=== PATIENT | female | born 1985 | race Caucasian/White ===

== ENCOUNTER 2018-04-10 01:32 | Inpatient (IN) ==
[2018-04-09 17:11] LABS: Basophils % 0.1 %; Eosinophils % 0.2 %; Hematocrit 29.8 % (35.3-44.9); Hemoglobin 10.7 g/dL (11.5-15.4); Immature Granulocytes % 0.8 % (0-4); Lymphocytes # 1.4 K/mcL (0.6-4.6); Lymphocytes % 9.2 %; Mean Corpuscular HGB Conc 35.9 g/dL (31.6-35.5); Mean Corpuscular Hemoglobin 33.1 pg (28.0-33.3); Mean Corpuscular Volume 92.3 fL (83.0-100.0); Mean Platelet Volume 10.7 fL (9.4-12.4); Monocytes # 0.8 K/mcL (0.0-1.3); Monocytes % 4.8 %; Neutrophils # 13.3 K/mcL (1.6-8.9); Platelet Count 204 K/mcL (140-400); Red Blood Count 3.23 M/mcL (3.82-4.97); Red Cell Distribution Width 14.3 % (11.5-14.5); Segmented Neutrophils % 84.9 %
[2018-04-09 17:29] LABS: Amphetamine Screen,Urine Negative ng/mL (Cutoff=1000); Barbiturate Screen,Urine Negative ng/mL (Cutoff=200); Benzodiazepines Screen,Urine Negative ng/mL (Cutoff=200); Cannabinoid Screen,Urine Negative ng/mL (Cutoff = 50); Cocaine Screen,Urine Negative ng/mL (Cutoff= 300); Opiate Screen,Urine Negative ng/mL (Cutoff=300); Phencyclidine Screen,Urine Negative ng/mL (Cutoff=25)
[2018-04-09 17:31] LABS: Alanine Aminotransferase 15 Units/L (7-52); Aspartate Amino Transferase 24 Units/L (13-39); BUN/Creatinine Ratio 11 (6-26); Blood Urea Nitrogen 5 mg/dL (6-20); Lactate Dehydrogenase 177 Units/L (140-271); Uric Acid 5.2 mg/dL (2.3-7.6); eGFR For Non-African Americans > 60 (> 60)
[2018-04-09 17:32] LABS: Creatinine,Urine 52 mg/dL; Protein/Creatinine Ratio,Urine 0.25 mg/mg (0.00-0.20)
--- NOTE | 2018-04-09 18:36 | OB/GYN History & Physical ---
Date of Encounter: 04/09/18 Time of Encounter: 18:34 Assessment and Plan (1) Gestational hypertension Current visit: Yes Status: Acute Pt sent over due to elevated blood pressures and proteinuria in office PIH labs negative Given 20mg Labetalol IV Push x 1 Admit to labor and delivery for induction of labor due to gestational hypertension AROM and IUPC, Scalp Electrode applied by Dr. Collins Epidural and Nubain as needed for pain control Pitocin per policy Anticipate Vaginal Delivery Qualifiers: Trimester: third trimester Qualified Code(s): O13.3 - Gestational [ -induced] hypertension without significant proteinuria, third trimester (2) 37 weeks gestation of Current visit: Yes Status: Acute (3) LGA (large for gestational age) fetus affecting mother, antepartum Current visit: Yes Status: Acute Qualifiers: Fetus number: single or unspecified fetus Qualified Code(s): O36.60X0 - Maternal care for excessive growth, unspecified trimester, not applicable or unspecified (4) Polyhydramnios affecting in third trimester Current visit: Yes Status: Acute (5) Chiari malformation type I Current visit: Yes Status: Chronic History of Present Illness Chief complaint: High Blood Pressure HPI: Ms. Ricks is a 32 year old female who presents at 37 weeks 3 days gestational age from the office with elevated blood pressures and proteinuria. Pt denied headache, blurry vision, dizziness, lightheadedness, SOB, chest pain, nausea, vomiting. She endorses good movement, and denies vaginal bleeding or leakage of clear fluid. History of pre-eclampsia and induction of labor at 38 weeks in previous . Has been following with Dr. Malik throughout thus far. Labs: Blood Type: O positive Ab Screen: Negative GBS: Negative Hep B Surf Ag: Nonreactive HIV Ab: Nonreactive Treponema Ab: Negative G/C: Negative Varicella: Immune Rubella: Non-immune Past Med Surg Social Fam HX - Past Medical History Attestation: Yes The following information was validated with the patient. Source: patient Medical history: no medical history, asthma Psychiatric history: no psych history - Past Surgical History Additional surgical history: C1 Laminectomy and decompression 2013 - Social History Smoking Status: Former smoker Smokeless Tobacco Status: No Alcohol use: none Drug use: none - Family History Mother Name: Brittany Mccall Age: 62 Family Member Ethnicity: Non- Living Status: Still Living Hx Family Cardiac Disorders: Yes (hypertension, 3 stents) Hx Family Respiratory Disorders: No Hx Family Cancer: No Hx Family GI Disorders: No Hx Family Genitourinary Disorders: Yes (bladder incontinence) Hx Family Endocrine Disorder: No Hx Family Musculoskeletal Disorders: No Hx Family Neuromuscular Disorders: No Hx Family Neurologic Disorders: No Hx Family HEENT Disorders: No Hx Family Autoimmune Disorders: No Hx Family Reproductive Disorders: Yes Hx Family Psychosocial Disorders: Yes (depression) Hx Family Medical Disorders: No Obstetrical History - Pregnancies : 2 Para: 1 Term: 1 : 0 Ab's: 0 Livin Medications and Allergies Amitriptyline [Elavil] 25 mg PO HS 04/09/18 [History] Aspirin [Adult Aspirin Regimen] 81 mg PO DAILY 04/09/18 [History] Docusate Sodium [Stool Softener] 150 mg PO DAILY 04/09/18 [History] Ferrous Sulfate 324 tab PO DAILY 04/09/18 [History] Folic Acid tab PO DAILY 04/09/18 [History] Vit #49/Iron Fum/FA [Mini Tablet] 1 each PO DAILY 04/09/18 [ History] 3 Allergy/AdvReac Type Severity Reaction Status Date / Time No Known Allergies Allergy Verified 04/09/18 18:14 Review of System OB All systems PM: reviewed and no additional remarkable complaints except as stated Exam - Vital Signs Vital signs: Elevated BPs 160-170s/ 90s-100s; Vital signs otherwise reviewed and stable. - Constitutional Constitutional: well developed, well nourished, no acute distress, obese - HEENT HEENT: EOMI, Normocephaly, Mucus Membranes Moist - Neck Neck exam: full ROM, normal inspection - Lungs Respiratory exam: CTAB - Cardiovascular Cardiovascular exam: RRR, +S1, +S2 - Abdomen Abdomen: Present: bowel sounds normal, gravid, non tender - Extremities Extremities exam: full ROM, normal capillary refill, normal inspection, pedal edema, warm, radial pulses palpable and symmetrical Deep Tendon Reflex Grade: 2+ Normal - Cervix Dilation: 3 (Per Dr. Collins) Effacement: 80 Station: -2 - Comments Comments: Category I Tracing; HR: 160s Results Result Diagrams: 04/09/18 16:40 04/09/18 16:40 Abnormal lab results WBC 15.7 K/mcL (4.3-11.1) H 04/09/18 16:40 RBC 3.23 M/mcL (3.82-4.97) L 04/09/18 16:40 Hgb 10.7 g/dL (11.5-15.4) L 04/09/18 16:40 Hct 29.8 % (35.3-44.9) L 04/09/18 16:40 MCHC 35.9 g/dL (31.6-35.5) H 04/09/18 16:40 Neutrophils # 13.3 K/mcL (1.6-8.9) H 04/09/18 16:40 BUN 5 mg/dL (6-20) L 04/09/18 16:40 Creatinine 0.47 mg/dL (0.60-1.20) L 04/09/18 16:40 Protein/Creatinin Ratio 0.25 mg/mg (0.00-0.20) H 04/09/18 16:40 All other labs normal. - VTE Reasons for not Prescribing Prophylaxis: Medical contraindication - Attending Attestation I examined this patient and my medical decision-making was reviewed with the Resident Physician. I agree with the documented findings, disposition and treatment plan as described except to the extent set forth below. Nikolai Collins DO
--- NOTE | 2018-04-09 18:41 | Anesthesia Evaluation PreOp ---
Date of Encounter: 04/09/18 Time of Encounter: 18:39 - Past History Planned Operation: RODNEY Cardiac History: HTN (PIH) Pulmonary History: Denies Any Significant HX SAP PI DEVELOPER History: Other (Patient has hx of chiari malformation s/p decompressive surgery in 2013. Has since then had RODNEY without complications. See Anes. consult note. No changes to neurological status.) Other Medical History: Denies Any Significant HX Anesthesia History: No Prior Anesthetic Complications, Past Anesthesia : Yes Alcohol Use: none Drug use: none Medications and Allergies Amitriptyline [Elavil] 25 mg PO HS 04/09/18 [History] Aspirin [Adult Aspirin Regimen] 81 mg PO DAILY 04/09/18 [History] Docusate Sodium [Stool Softener] 150 mg PO DAILY 04/09/18 [History] Ferrous Sulfate 324 tab PO DAILY 04/09/18 [History] Folic Acid tab PO DAILY 04/09/18 [History] Vit #49/Iron Fum/FA [Mini Tablet] 1 each PO DAILY 04/09/18 [ History] 3 Allergy/AdvReac Type Severity Reaction Status Date / Time No Known Allergies Allergy Verified 04/09/18 18:14 - Meds/Allergy Pre-op Review Medications Reviewed: Yes Allergies Reviewed: Yes Beta Blockers on Current Med List: Yes (04/09 18:11) Anesthesia Results - Labs 04/09/18 16:40 04/09/18 16:40 Anesthesia Exam O2 Sat Height 1.68 m Weight 100.698 kg NPO (# of Hours): 6 Pain Scale: 5 Pain Scale Used: Numeric (1 - 10) - HEENT Pupil (Motor): Pupils equal Mallampati: II Teeth: Normal Oral Opening: Greater than 3 - SAP PI DEVELOPER LOC: Oriented SAP PI DEVELOPER Motor: Normal RUE, Normal LUE, Normal RLE, Normal LLE, Normal Face SAP PI DEVELOPER Sensory: Normal: RUE, LUE, RLE, LLE, Face - Cardiac Rhythm: Regular Murmur: None JVD: No Carotid Bruit: No - Pulmonary Breath Sounds: bilateral Clear Respiratory Effort: Symmetrical Anesthesia Assess/Plan ASA Score: 2 Modified [place] Scale for Level of Consciousness: Cooperative, oriented, and tranquil Anesthetic Plan: General (plan b), Regional (plan a) Autologous Blood: Yes Monitoring Plan: Standard Monitors Recovery Plan: PACU
--- NOTE | 2018-04-09 19:29 | OB Labor Progress Note ---
Date of Encounter: 04/09/18 Time of Encounter: 19:27 Labor Progress Note - Subjective Subjective: Patient is a 32-year-old 2 para 1 at 37-3/7 weeks who presented from the office secondary elevated blood pressures. On labor and delivery pressures are markedly elevated she did require IV labetalol PIH labs were normal. Because of persistent elevated was decided because of the gestational hypertension with proceed on with delivery. Patient has polyhydramnios is having difficulty monitoring the patient decided time of this go-ahead and artificially ruptured and internalized. - Cervix Cervix: 3/80/-2 AROM large amount clear fluid noted - Heart Tones Heart Tones: scalp monitor placed. Heart tones 140s reactive - [place]: IUPC placed irregular contractions noted - Plan Plan: We will get patient pressure stabilized 1 stable with labetalol we will augment with Pitocin plan is to anticipate a vaginal delivery
--- NOTE | 2018-04-10 01:10 | Anesthesia Procedures ---
Date of Encounter: 04/10/18 Time of Encounter: 01:08 Procedures: Anesthesia - Epidural/Spinal Patient ID/Chart reviewed: Yes Patient examined: Yes OB Eval: Gestational age: 37.4 OB Eval: : 2 OB Eval: Hx Para: 1 OB Eval: Dilated at (cm): 3 OB Eval: Contractions: Non-stressed pattern Consent Obtained: Yes Supplemental Oxygen: None/Room Air Site Prep: Aseptic Technique, Sterile prep and drape, Povidone-Iodine 1% Patient position: upright Local Anesthetic: Lidocaine 1% Amount of Local Anesthetic used: 3 Touhy Needle Gauge: 18 Touhy Needle Depth (cm): 7 Catheter Depth at Skin (cm): 20 Test Dose (1.5% Lido + Epi): Volume given (mls): 5 Test Dose Result: Negative Loading Dose: Other: 10mls of epidural pharm bag premix solution Loading Dose Administered: Thru Catheter Infusion Med: 0.125% Bupivacaine w/ 2 mcg/ml Fentanyl Infusion Rate (mls/hr): 16 ([id number]) Catheter Secured in Place: Tegaderm, Tape Interspace Used: L4-L5 Loss of Resistance (ARIANNE): Yes Blood: No CSF: No Paresthesia: No Procedure: pt tolerated procedure well. no complications. vss. fhr stable.
[~2018-04-10 01:32] MED LIST: *HR* Labetalol 20 MG/4 ML SYRINGE IVP ONE; *HR* Nalbuphine 10 MG/ML AMPUL IVP PRN; EPHEDrine 50 MG/ML VIAL IVP PRN; Epidural Premix (fent/bupiv) 110 ML EP SCH; Famotidine 20 MG TABLET PO SCH; Famotidine 20 MG/2 ML VIAL IVP PRN; Lidocaine -MPF 1% 5 ML AMPUL ONE; Metoclopramide 10 MG/2 ML VIAL IVP PRN; Naloxone 0.4 MG/ML INJ IVP PRN; Ondansetron 4 MG/2 ML VIAL IVP PRN; Oxytocin 20 units/ LR 1000 mL 20 UNIT/1,000 ML BAG IVC SCH; Ringers Solution, Lactated 1,000 ML IVC SCH; Ringers Solution, Lactated 500 ML IVC ONE
[2018-04-10] MEDS ORDERED: Acetaminophen 325 MG TABLET PO PRN (04:25)
[2018-04-10] MEDS ORDERED: Lanolin 7 G OINT...G. TP PRN (04:25)
[2018-04-10] MEDS ORDERED: Oxytocin 20 units/ LR 1000 mL 20 UNIT/1,000 ML BAG IVC SCH (04:25)
--- NOTE | 2018-04-10 04:28 | OB/GYN Procedure Note ---
Delivery - Delivery Date: 04/10/18 Provider: Shon Collins Intrapartum events: other(please specify) (hypertension) Delivery induction: AROM, oxytocin Delivery monitor: internal FHT, internal uterine Anesthesia: local, epidural Quantitated Blood Loss: 300 - (s) A Delivery Date: 04/10/18 Delivery Time: 03:37 Presentation: vertex Position: LOUIE Route of delivery: Gender: Female Viability: Viable Pounds: 9 Ounces: 1 Weight Gram: 4.11 kg at 1 minute: 8 at 5 mins: 9 Shoulder Dystocia: not encountered Specimens collected: cord blood Placenta: spontaneous Cord: 3 umbilical vessels - Repair Episiotomy: none Laceration Description: Perineal - 2nd Degree - Complications Delivery complications: none Delivery comments: Patient is a 33-year-old 2 para 1 at 37-3/7 weeks who presented from the office secondary to elevated blood pressures. Patient's blood pressure was elevated on admission and did require labetalol. Because we were changing her blood pressures and did have to give her by mouth labetalol was decided to go ahead and keep her and induce her secondary to gestational hypertension. Patient had a large for gestational age with polyhydramnios unable to monitor baby so she was artificially ruptured with a scalp lead large amount of clear fluid was noted and she was internalized patient was started on Pitocin patient did receive an epidural and progressed probably patient became complete patient pushed approximately 4-5 times delivering a viable female infant in left occiput anterior presentation at 0 337. There was no nuchal cord, no meconium, infant was suctioned on the abdomen. Apgars were 8 at 1 minute, 9 at 5, infant weight was 9 lbs. 1 oz. Placenta was then delivered spontaneously with three-vessel cord, tie puller is Dr. Collins, billing and accounting staff assistant Dr. Qureshi PGY 2 anesthesia epidural local, as noted blood loss 300 mL's. Patient had a second-degree perineal laceration repaired with 3-0 Monocryl in usual fashion cervix and vagina was visualized intact. Patient tolerated the delivery well she will be observed 2 hours before being taken floor. - Disposition Mom disposition: stable in LDR disposition: stable in LDR
[2018-04-10] MEDS: Ibuprofen 600 MG TABLET PO PRN ×2 (04:39→20:16)
[2018-04-10] MEDS: Prenatal Vit/FA 1 EACH TABLET PO SCH (08:46)
[2018-04-10] MEDS: Benzocaine/Menthol 56 GM AEROSOL SPRAY TP PRN (20:17)
[2018-04-11 04:38] LABS: Basophils % 0.2 %; Eosinophils # 0.2 K/mcL (0.0-0.6); Eosinophils % 1.3 %; Hematocrit 24.1 % (35.3-44.9); Immature Granulocytes % 1.7 % (0-4); Lymphocytes # 2.6 K/mcL (0.6-4.6); Lymphocytes % 19.1 %; Mean Corpuscular HGB Conc 34.4 g/dL (31.6-35.5); Mean Corpuscular Hemoglobin 31.9 pg (28.0-33.3); Mean Corpuscular Volume 92.7 fL (83.0-100.0); Mean Platelet Volume 10.8 fL (9.4-12.4); Monocytes # 1.1 K/mcL (0.0-1.3); Monocytes % 8.4 %; Neutrophils # 9.4 K/mcL (1.6-8.9); Platelet Count 169 K/mcL (140-400); Red Cell Distribution Width 14.6 % (11.5-14.5); Segmented Neutrophils % 69.3 %
[2018-04-11 04:55] LABS: Hemoglobin 8.3 g/dL (11.5-15.4)
[2018-04-11] MEDS: Prenatal Vit/FA 1 EACH TABLET PO SCH (08:59)
[2018-04-11] MEDS: Ibuprofen 600 MG TABLET PO PRN ×2 (09:02→21:39)
--- NOTE | 2018-04-11 09:14 | OB/GYN Progress Note ---
Date of Encounter: 04/11/18 Time of Encounter: 09:12 - Assessment and Plan (1) Vaginal delivery Current Visit: Yes Status: Acute Continue routine care Monitor blood pressure Anticipate discharge home tomorrow Subjective - Subjective Principal diagnosis: Vaginal Delivery Interval history: S/P Vaginal Delivery Day 1 Pain is well controlled Lochia is light and without clots All VSS except for BP which is borderline and controlled with labetalol; will continue to monitor for another 24 hours Tolerating regular diet, passing flatus Voiding without difficulty Discharge home tomorrow Patient reports: appetite normal, voiding normally, pain well controlled, ambulating normally [place]: in NICU, nursing well Objective - Latest Vital Signs Latest vital signs: Vital Signs Temp Pulse Resp BP Pulse Ox 04/11/18 04:10 98.1 F 91 14 141/87 98 04/10/18 21:30 88 14 137/89 04/10/18 20:10 98.2 F 95 14 163/99 98 04/10/18 17:28 97.3 F L 89 16 148/97 - Exam Lungs: bilateral: normal Chest: Normal S1, Normal S2 Extremities: Present: normal Abdomen: Present: normal appearance, soft. Absent: gravid Uterus: Present: normal, firm Uterus Position: At Umbilicus, Midline - Labs Labs: Laboratory Results - last 24 hr 04/11/18 04:01 WBC 13.5 H RBC 2.60 L Hgb 8.3 L D Hct 24.1 L MCV 92.7 MCH 31.9 MCHC 34.4 RDW 14.6 H Plt Count 169 MPV 10.8 Immature Gran % 1.7 Seg Neutrophils % 69.3 Lymphocytes % 19.1 Monocytes % 8.4 Eosinophils % 1.3 Basophils % 0.2 Neutrophils # 9.4 H Lymphocytes # 2.6 Monocytes # 1.1 Eosinophils # 0.2 Basophils # 0.0
[2018-04-11] MEDS: Benzocaine/Menthol 56 GM AEROSOL SPRAY TP PRN (21:40)
[2018-04-12 05:08] VITALS: BP 142/90
[2018-04-12] MEDS: Ibuprofen 600 MG TABLET PO PRN (08:15)
[2018-04-12] MEDS: Prenatal Vit/FA 1 EACH TABLET PO SCH (08:15)
--- NOTE | 2018-04-12 08:59 | Discharge Summary ---
Date of Encounter: 04/12/18 Time of Encounter: 08:55 - Discharge Diagnosis (1) Vaginal delivery Priority: Primary Status: Acute Comments: S/P Vaginal Delivery Day 2 Pain is well controlled Lochia is light and without clots VSS Tolerating regular diet, passing flatus Voiding without difficulty Discharge home tomorrow - Discharge Medications Prescriptions: Ibuprofen [Motrin] 600 mg PO Q6HR PRN #30 tablet PRN Reason: Cramping Breast Pump [BREAST PUMP] 1 each .ROUTE AD #1 each Docusate [Colace] 100 mg PO BID PRN #30 capsule PRN Reason: Constipation Ferrous Sulfate 325 mg PO BIDWM #180 tablet Labetalol [Trandate] 200 mg PO BID #180 tablet Home Medications: Amitriptyline [Elavil] 25 mg PO HS 04/09/18 [History] Aspirin [Adult Aspirin Regimen] 81 mg PO DAILY 04/09/18 [History] Folic Acid tab PO DAILY 04/09/18 [History] Vit #49/Iron Fum/FA [Mini Tablet] 1 each PO DAILY 04/09/18 [ History] Acetaminophen [Tylenol] 650 mg PO Q6HR PRN tablet 04/12/18 [Rx] Benzocaine/Menthol Proctor [Dermoplast Proctor] 1 appl TP QID PRN aerosol 04/12/18 [Rx] Breast Pump [BREAST PUMP] 1 each .ROUTE AD #1 each 04/12/18 [Rx] Docusate [Colace] 100 mg PO BID PRN #30 capsule 04/12/18 [Rx] Ferrous Sulfate 325 mg PO BIDWM #180 tablet 04/12/18 [Rx] Ibuprofen [Motrin] 600 mg PO Q6HR PRN #30 tablet 04/12/18 [Rx] Labetalol [Trandate] 200 mg PO BID #180 tablet 04/12/18 [Rx] Lanolin [Lansinoh] 1 appl TP QID PRN oint...g. 04/12/18 [Rx] Allergies/Adverse Reactions: 3 Allergy/AdvReac Type Severity Reaction Status Date / Time No Known Allergies Allergy Verified 04/09/18 18:14 Data Procedures and tests throughout hospitalization: Laboratory Tests 04/09/18 04/09/18 04/09/18 16:40 16:40 16:40 WBC 15.7 H RBC 3.23 L Hgb 10.7 L Hct 29.8 L MCV 92.3 MCH 33.1 MCHC 35.9 H RDW 14.3 Plt Count 204 MPV 10.7 Immature Gran % 0.8 Seg Neutrophils % 84.9 Lymphocytes % 9.2 Monocytes % 4.8 Eosinophils % 0.2 Basophils % 0.1 Neutrophils # 13.3 H Lymphocytes # 1.4 Monocytes # 0.8 Eosinophils # 0.0 Basophils # 0.0 BUN 5 L Creatinine 0.47 L Est GFR ( Amer) > 60 Est GFR (Non-Af Amer) > 60 BUN/Creatinine Ratio 11 Uric Acid 5.2 AST 24 ALT 15 Lactate Dehydrogenase 177 Urine Creatinine 52 Protein/Creatinin Ratio 0.25 H Urine Total Protein 13 Urine Opiates Screen Negative Ur Barbiturates Screen Negative Ur Phencyclidine Scrn Negative Ur Amphetamines Screen Negative U Benzodiazepines Scrn Negative Urine Cocaine Screen Negative U Marijuana (THC) Screen Negative Ur Drug Screen Interp See Below 04/09/18 04/11/18 16:47 04:01 WBC 13.5 H RBC 2.60 L Hgb 8.3 L D Hct 24.1 L MCV 92.7 MCH 31.9 MCHC 34.4 RDW 14.6 H Plt Count 169 MPV 10.8 Immature Gran % 1.7 Seg Neutrophils % 69.3 Lymphocytes % 19.1 Monocytes % 8.4 Eosinophils % 1.3 Basophils % 0.2 Neutrophils # 9.4 H Lymphocytes # 2.6 Monocytes # 1.1 Eosinophils # 0.2 Basophils # 0.0 BUN Creatinine Est GFR ( Amer) Est GFR (Non-Af Amer) BUN/Creatinine Ratio Uric Acid AST ALT Lactate Dehydrogenase Urine Creatinine Protein/Creatinin Ratio Urine Total Protein Urine Opiates Screen TNP Ur Barbiturates Screen TNP Ur Phencyclidine Scrn TNP Ur Amphetamines Screen TNP U Benzodiazepines Scrn TNP Urine Cocaine Screen TNP U Marijuana (THC) Screen TNP Ur Drug Screen Interp TNP Date of admission: 04/10/18 01:32 Primary care physician: Kristy Magdaleno CNP Consults: 04/10/18 04:25 Consult to Emergency Medical Technician [CONS] Routine Comment: Vaginal delivery, consult needed Discharging clinician: Sheryl Delaney Anticipated date of discharge: 04/12/18 - Patient Status Disposition: Home, Self-Care Condition: Good Functional capacity at discharge: independent ambulation Overall status at discharge: patient is progressing back to baseline - Discharge Instructions Follow Up With: Kristy Magdaleno, HERNANDEZ [Primary Care Provider] - Carli Malik DO [Partnered Physician] - - Diet and Activity Activity: increase activity as tolerated Diet: regular diet Hospital Course Delivery: Episiotomy: none Laceration: none Other procedures: none complications: none Discharge diagnosis: IUP at term delivered [place] baby: female Time Attestation: Total time spent providing and/or coordinating discharge services: Time Spent: Less than 30 minutes Exam - Constitutional Vitals: Temp Pulse Resp BP Pulse Ox 97.8 F 75 14 142/90 98 04/12/18 04:20 04/12/18 04:20 04/12/18 04:20 04/12/18 04:20 04/12/18 04:20 General appearance IM: cooperative, A&O X 3, pleasant - Respiratory Respiratory exam: Present: CTAB - Cardiovascular Cardiovascular exam IM: Present: RRR, +S1, +S2 - GI/Abdominal GI/Abdominal exam IM: normal bowel sounds, soft - Rectal Rectal exam: deferred - Uterine Tone: Firm Uterus Position: At Umbilicus, Midline - Extremities Exam Extremities exam IM: Present: normal capillary refill, normal inspection, radial pulses palpable and symmetrical - Neurological Exam Neurological exam: alert, oriented X3
== END 2018-04-12 13:43 | disposition home or self-care (01) | DRG 775 ==
LOC: 1NENULAB → 1NENUOBS 06:47
PROVIDERS: ADMIT Advanced Practice Midwife; ATTEND Advanced Practice Midwife

== ENCOUNTER 2020-12-30 12:08 | Observation (INO) ==
[2020-12-30 13:28] LABS: Protein/Creatinine Ratio,Urine 0.14 mg/mg (0.00-0.20)
[2020-12-30 13:46] LABS: Alanine Aminotransferase 14 Units/L (7-52); Aspartate Amino Transferase 17 Units/L (13-39); BUN/Creatinine Ratio 8 (6-26); Blood Urea Nitrogen 4 mg/dL (6-20); Lactate Dehydrogenase 151 Units/L (140-271); Uric Acid 5.2 mg/dL (2.3-7.6); eGFR For African Americans > 60 (> 60); eGFR For Non-African Americans > 60 (> 60)
[2020-12-30 14:35] LABS: Basophils % 0.1 %; Eosinophils % 0.3 %; Hematocrit 31.2 % (35.3-44.9); Hemoglobin 10.9 g/dL (11.5-15.4); Immature Granulocytes % 0.6 % (0-4); Lymphocytes # 1.1 K/mcL (0.6-4.6); Lymphocytes % 10.7 %; Mean Corpuscular HGB Conc 34.9 g/dL (31.6-35.5); Mean Corpuscular Hemoglobin 31.6 pg (28.0-33.3); Mean Corpuscular Volume 90.4 fL (83.0-100.0); Mean Platelet Volume 10.1 fL (9.4-12.4); Monocytes # 0.5 K/mcL (0.0-1.3); Monocytes % 4.8 %; Neutrophils # 8.4 K/mcL (1.6-8.9); Platelet Count 135 K/mcL (140-400); Red Blood Count 3.45 M/mcL (3.82-4.97); Red Cell Distribution Width 13.1 % (11.5-14.5); Segmented Neutrophils % 83.5 %; White Blood Count 10.1 K/mcL (4.3-11.1)
== END 2020-12-30 16:10 | disposition home or self-care (01) ==
LOC: 1NENULAB
PROVIDERS: ADMIT Student in an Organized Health Care Education/Training Program; ATTEND Student in an Organized Health Care Education/Training Program

== ENCOUNTER → 2021-01-03 22:03 | Observation (INO) ==
[2021-01-03 16:03] LABS: Basophils % 0.1 %; Eosinophils % 0.2 %; Hematocrit 31.3 % (35.3-44.9); Hemoglobin 11.2 g/dL (11.5-15.4); Immature Granulocytes % 0.7 % (0-4); Lymphocytes # 1.3 K/mcL (0.6-4.6); Lymphocytes % 10.5 %; Mean Corpuscular HGB Conc 35.8 g/dL (31.6-35.5); Mean Corpuscular Hemoglobin 31.9 pg (28.0-33.3); Mean Corpuscular Volume 89.2 fL (83.0-100.0); Mean Platelet Volume 10.4 fL (9.4-12.4); Monocytes # 0.6 K/mcL (0.0-1.3); Monocytes % 4.7 %; Neutrophils # 10.1 K/mcL (1.6-8.9); Platelet Count 144 K/mcL (140-400); Red Blood Count 3.51 M/mcL (3.82-4.97); Segmented Neutrophils % 83.8 %; White Blood Count 12.1 K/mcL (4.3-11.1)
[2021-01-03 16:23] LABS: Alanine Aminotransferase 18 Units/L (7-52); Aspartate Amino Transferase 22 Units/L (13-39); BUN/Creatinine Ratio 13 (6-26); Blood Urea Nitrogen 6 mg/dL (6-20); Lactate Dehydrogenase 166 Units/L (140-271); Uric Acid 4.8 mg/dL (2.3-7.6); eGFR For African Americans > 60 (> 60); eGFR For Non-African Americans > 60 (> 60)
[~2021-01-03 22:03] MED LIST changes: -*HR* Nalbuphine 10 MG/ML AMPUL IVP PRN; +Acetaminophen 325 MG TABLET PO ONE; -EPHEDrine 50 MG/ML VIAL IVP PRN; -Epidural Premix (fent/bupiv) 110 ML EP SCH; -Famotidine 20 MG TABLET PO SCH; -Famotidine 20 MG/2 ML VIAL IVP PRN; -Lidocaine -MPF 1% 5 ML AMPUL ONE; -Metoclopramide 10 MG/2 ML VIAL IVP PRN; -Naloxone 0.4 MG/ML INJ IVP PRN; -Ondansetron 4 MG/2 ML VIAL IVP PRN; -Oxytocin 20 units/ LR 1000 mL 20 UNIT/1,000 ML BAG IVC SCH; -Ringers Solution, Lactated 1,000 ML IVC SCH; -Ringers Solution, Lactated 500 ML IVC ONE
== END | disposition home or self-care (01) ==
LOC: 1NENULAB
PROVIDERS: ADMIT Obstetrics & Gynecology; ATTEND Obstetrics & Gynecology

== ENCOUNTER → 2021-01-25 20:14 | Observation (INO) ==
[2021-01-25 17:09] LABS: Basophils % 0.3 %; Eosinophils # 0.1 K/mcL (0.0-0.6); Eosinophils % 0.5 %; Hematocrit 30.6 % (35.3-44.9); Hemoglobin 10.8 g/dL (11.5-15.4); Immature Granulocytes % 0.8 % (0-4); Lymphocytes # 1.2 K/mcL (0.6-4.6); Lymphocytes % 11.6 %; Mean Corpuscular HGB Conc 35.3 g/dL (31.6-35.5); Mean Corpuscular Volume 90.8 fL (83.0-100.0); Monocytes # 0.6 K/mcL (0.0-1.3); Monocytes % 5.8 %; Neutrophils # 8.2 K/mcL (1.6-8.9); Platelet Count 128 K/mcL (140-400); Red Blood Count 3.37 M/mcL (3.82-4.97); Red Cell Distribution Width 13.3 % (11.5-14.5); White Blood Count 10.1 K/mcL (4.3-11.1)
[2021-01-25 17:14] LABS: Protein/Creatinine Ratio,Urine 0.18 mg/mg (0.00-0.20)
[2021-01-25 17:24] LABS: Alanine Aminotransferase 20 Units/L (7-52); Aspartate Amino Transferase 20 Units/L (13-39); BUN/Creatinine Ratio 12 (6-26); Blood Urea Nitrogen 6 mg/dL (6-20); Lactate Dehydrogenase 153 Units/L (140-271); Uric Acid 4.5 mg/dL (2.3-7.6); eGFR For African Americans > 60 (> 60); eGFR For Non-African Americans > 60 (> 60)
[~2021-01-25 20:14] MED LIST changes: -*HR* Labetalol 20 MG/4 ML SYRINGE IVP ONE; -Acetaminophen 325 MG TABLET PO ONE; +NIFEdipine Immed Rel 10 MG CAPSULE PO ONE; +NIFEdipine XL (24 HR) 30 MG TAB.ER.24 PO SCH; +Ringers Solution, Lactated 1,000 ML IVC SCH; +SUMAtriptan succinate 25 MG TABLET PO ONE
== END | disposition home or self-care (01) ==
LOC: 1NENULAB
PROVIDERS: ADMIT Student in an Organized Health Care Education/Training Program; ATTEND Student in an Organized Health Care Education/Training Program

== ENCOUNTER 2021-02-16 07:58 | Inpatient (IN) ==
[2021-02-16] MEDS ORDERED: *HR* Nalbuphine 10 MG/ML AMPUL IV PRN (08:09)
[2021-02-16] MEDS ORDERED: Ondansetron 4 MG/2 ML VIAL IVP PRN (08:09)
[2021-02-16] MEDS ORDERED: Famotidine 20 MG/2 ML VIAL IVP PRN (08:09)
[2021-02-16] MEDS ORDERED: Metoclopramide 10 MG/2 ML VIAL IVP PRN (08:09)
[2021-02-16] MEDS ORDERED: Naloxone 0.4 MG/ML INJ IVP PRN (08:09)
[2021-02-16] MEDS ORDERED: Ringers Solution, Lactated 1,000 ML IVC SCH (08:15)
[2021-02-16 09:09] LABS: Basophils % 0.2 %; Eosinophils # 0.1 K/mcL (0.0-0.6); Eosinophils % 0.6 %; Hematocrit 28.8 % (35.3-44.9); Hemoglobin 9.9 g/dL (11.5-15.4); Immature Granulocytes % 0.7 % (0-4); Lymphocytes # 1.4 K/mcL (0.6-4.6); Lymphocytes % 16.9 %; Mean Corpuscular HGB Conc 34.4 g/dL (31.6-35.5); Mean Corpuscular Hemoglobin 31.3 pg (28.0-33.3); Mean Corpuscular Volume 91.1 fL (83.0-100.0); Mean Platelet Volume 10.1 fL (9.4-12.4); Monocytes # 0.4 K/mcL (0.0-1.3); Monocytes % 4.7 %; Neutrophils # 6.3 K/mcL (1.6-8.9); Platelet Count 141 K/mcL (140-400); Red Blood Count 3.16 M/mcL (3.82-4.97); Red Cell Distribution Width 13.3 % (11.5-14.5); Segmented Neutrophils % 76.9 %; White Blood Count 8.2 K/mcL (4.3-11.1)
[2021-02-16 09:17] LABS: Amphetamine Screen,Urine Negative ng/mL (Cutoff=1000); Barbiturate Screen,Urine Negative ng/mL (Cutoff=200); Benzodiazepines Screen,Urine Negative ng/mL (Cutoff=200); Cannabinoid Screen,Urine Negative ng/mL (Cutoff = 50); Cocaine Screen,Urine Negative ng/mL (Cutoff= 300); Opiate Screen,Urine Negative ng/mL (Cutoff=300); Phencyclidine Screen,Urine Negative ng/mL (Cutoff=25); Protein/Creatinine Ratio,Urine 0.17 mg/mg (0.00-0.20)
[2021-02-16 09:27] LABS: Alanine Aminotransferase 50 Units/L (7-52); Aspartate Amino Transferase 35 Units/L (13-39); BUN/Creatinine Ratio 11 (6-26); Blood Urea Nitrogen 6 mg/dL (6-20); Lactate Dehydrogenase 140 Units/L (140-271); Uric Acid 5.1 mg/dL (2.3-7.6); eGFR For African Americans > 60 (> 60); eGFR For Non-African Americans > 60 (> 60)
[2021-02-16] MEDS ORDERED: *HR* FentaNYL (PF) 100 MCG/2 ML VIAL EP ONE (10:06)
[2021-02-16] MEDS ORDERED: EPHEDrine 50 MG/ML VIAL IVP PRN (10:06)
[2021-02-16] MEDS ORDERED: Ropivacaine/PF 0.2% 20 ML VIAL EP ONE (10:06)
[2021-02-16] MEDS ORDERED: miSOPROStoL 25 MCG TABLET VG SCH (10:15)
[2021-02-16] MEDS ORDERED: Epidural Premix (fent/bupiv) 110 ML EP SCH (10:15)
[2021-02-16] MEDS ORDERED: Ropivacaine/PF 0.2% 20 ML VIAL ONE (10:17)
[2021-02-16] MEDS ORDERED: miSOPROStoL 100 MCG TABLET RC ONE (12:45)
[2021-02-16] MEDS ORDERED: Oxytocin 20 units/ LR 1000 mL 20 UNIT/1,000 ML BAG IVC SCH ×2 (13:00→23:14)
[2021-02-16] MEDS ORDERED: NIFEdipine XL (24 HR) 30 MG TAB.ER.24 PO SCH (13:00)
[2021-02-16] MEDS ORDERED: Calcium Gluconate 1,000 MG/10 ML VIAL IVP PRN ×2 (18:33→23:14)
[2021-02-16] MEDS ORDERED: *HR* Labetalol 20 MG/4 ML SYRINGE IVP ONE (18:34)
[2021-02-16] MEDS ORDERED: Magnesium Sulf 20 gm/SW 500mL 20 GM/500 ML IV.SOLN IVC SCH (18:45)
[2021-02-16] MEDS ORDERED: Benzocaine/Menthol 56 GM AEROSOL SPRAY TP PRN (23:14)
[2021-02-16] MEDS ORDERED: Sennosides 8.6 MG TABLET PO PRN (23:14)
[2021-02-16] MEDS ORDERED: Acetaminophen 325 MG TABLET PO PRN (23:14)
[2021-02-16] MEDS ORDERED: Lanolin 7 G OINT...G. TP PRN (23:14)
[2021-02-17] MEDS: Magnesium Sulf 20 gm/SW 500mL 20 GM/500 ML IV.SOLN IVC SCH ×2 (03:16→15:36)
[2021-02-17 07:05] LABS: Basophils % 0.1 %; Eosinophils # 0.1 K/mcL (0.0-0.6); Eosinophils % 0.4 %; Hematocrit 23.2 % (35.3-44.9); Hemoglobin 8.5 g/dL (11.5-15.4); Immature Granulocytes % 0.6 % (0-4); Lymphocytes # 1.6 K/mcL (0.6-4.6); Lymphocytes % 12.1 %; Mean Corpuscular HGB Conc 36.6 g/dL (31.6-35.5); Mean Corpuscular Hemoglobin 32.9 pg (28.0-33.3); Mean Corpuscular Volume 89.9 fL (83.0-100.0); Mean Platelet Volume 10.1 fL (9.4-12.4); Monocytes % 7.4 %; Neutrophils # 10.6 K/mcL (1.6-8.9); Platelet Count 142 K/mcL (140-400); Red Blood Count 2.58 M/mcL (3.82-4.97); Red Cell Distribution Width 13.6 % (11.5-14.5); Segmented Neutrophils % 79.4 %; White Blood Count 13.3 K/mcL (4.3-11.1)
[2021-02-17 07:21] LABS: Alanine Aminotransferase 66 Units/L (7-52); Aspartate Amino Transferase 51 Units/L (13-39); eGFR For African Americans > 60 (> 60); eGFR For Non-African Americans > 60 (> 60)
[2021-02-17] MEDS: Prenatal Vit/FA 1 EACH TABLET PO SCH (08:21)
[2021-02-17] MEDS: Ibuprofen 600 MG TABLET PO PRN ×2 (08:21→15:36)
[2021-02-17] MEDS: NIFEdipine XL (24 HR) 30 MG TAB.ER.24 PO SCH (14:01)
[2021-02-18] MEDS: Ibuprofen 600 MG TABLET PO PRN (07:44)
[2021-02-18] MEDS: NIFEdipine XL (24 HR) 30 MG TAB.ER.24 PO SCH (07:44)
[2021-02-18] MEDS: Prenatal Vit/FA 1 EACH TABLET PO SCH (07:44)
[2021-02-18 07:54] VITALS: BP 139/80; PULSE 72; TEMP 98; O2SAT 98
[2021-02-18 11:52] LABS: Basophils % 0.3 %; Eosinophils # 0.2 K/mcL (0.0-0.6); Hemoglobin 8.4 g/dL (11.5-15.4); Immature Granulocytes % 1.2 % (0-4); Lymphocytes # 1.3 K/mcL (0.6-4.6); Lymphocytes % 12.5 %; Mean Corpuscular HGB Conc 33.6 g/dL (31.6-35.5); Mean Corpuscular Hemoglobin 31.5 pg (28.0-33.3); Mean Corpuscular Volume 93.6 fL (83.0-100.0); Mean Platelet Volume 10.1 fL (9.4-12.4); Monocytes # 0.6 K/mcL (0.0-1.3); Monocytes % 5.3 %; Neutrophils # 8.3 K/mcL (1.6-8.9); Platelet Count 151 K/mcL (140-400); Red Blood Count 2.67 M/mcL (3.82-4.97); Red Cell Distribution Width 13.7 % (11.5-14.5); Segmented Neutrophils % 78.7 %; White Blood Count 10.6 K/mcL (4.3-11.1)
[2021-02-18 12:11] LABS: Alanine Aminotransferase 54 Units/L (7-52); Aspartate Amino Transferase 34 Units/L (13-39); BUN/Creatinine Ratio 15 (6-26); Blood Urea Nitrogen 8 mg/dL (6-20); Lactate Dehydrogenase 237 Units/L (140-271); Uric Acid 4.7 mg/dL (2.3-7.6); eGFR For African Americans > 60 (> 60); eGFR For Non-African Americans > 60 (> 60)
== END 2021-02-18 12:46 | disposition home or self-care (01) | DRG 806 ==
LOC: 1NENULAB 07:58 → 1NENUOBS 22:58
PROVIDERS: ADMIT Obstetrics & Gynecology; ATTEND Obstetrics & Gynecology